=== PATIENT | female | born 1960 | race Caucasian/White ===

== ENCOUNTER 2017-07-18 19:21 | Inpatient (IN) | payer BC ==
[~2017-07-18] VITALS: Ht 160 cm; Wt 71.5 kg
[2017-07-18 19:22] VITALS: BP 177/81; PULSE 98; RESP 18; TEMP 97.9; O2SAT 98
[2017-07-18] MEDS ORDERED: ONDANSETRON HCL 4 MG/2 ML VIAL IV PUSH ONE (20:15)
[2017-07-18] MEDS ORDERED: MORPHINE SULFATE 4 MG/ML INJ IV PUSH ONE ×2 (20:15→21:15)
[2017-07-18] MEDS ORDERED: HYDR12.57 PO (20:17)
[2017-07-18] MEDS ORDERED: LISI40TA PO (20:17)
--- NOTE | 2017-07-18 21:10 | RADRPT ---
EXAM DATE/TIME: 07/18/2017 20:35 [facility] COMPARISON: No previous studies available for comparison. INDICATIONS : Pain from fall. MEDICAL HISTORY : Prior fracture. SURGICAL HISTORY : None. ENCOUNTER: Initial ACUITY: 1 day PAIN SCORE: 10/10 LOCATION: Right forearm. FINDINGS: There is a fractured distal shaft of the radius with two thirds shaft width displacement. Ulna shaft intact. Mild osteoarthritis. CONCLUSION: 1. Fracture distal shaft right radius. No dislocation. Jimmy Downing MD on July 18, 2017 at 21:08 Board Certified Radiologist. This report was verified electronically.
--- NOTE | 2017-07-18 21:21 | PD ---
HPI Chief Complaint: Fall Time Seen by Provider: 19:56 Travel History International Travel<30 days: No Contact w/Intl Traveler<30days: No Traveled to known affect area: No History of Present Illness HPI 56-year-old female that presents to the ED for evaluation of fall. Patient had trip and fall today after dinner. Patient landed on her right arm. Per patient she doesn't know what she hit but she hit the ground. She did not hit her head or lose consciousness. She has superficial cut to her right big toe. She denies any fevers chills or sweats. She denies any chest pain or shortness of breath. No abdominal pain. She takes no blood thinners. She does have a history of hypertension and takes HCTZ and lisinopril. Denies any history of heart disease. She states that she did broke her forearm when she was 10 has had no issues since. She did not have any hardware in place. She states that the pain currently say out of 10. Gets worse with movement. She does have an obvious deformity to the forearm. Denies any numbness, tilling, weakness. No other medical issues. She is from out of town. [facility] Past Medical History Diminished Hearing: No Hypertension: Yes Tetanus Vaccination: > 5 Years Past Surgical History Hysterectomy: Yes Social History Alcohol Use: No Tobacco Use: No Substance Use: No Allergies-Medications (Allergen,Severity, Reaction): Coded Allergies: No Known Allergies (Unverified , 07/18/17) Reported Meds & Prescriptions Reported Meds & Active Scripts Active Reported Hydrochlorothiazide 12.5 Mg Cap 12.5 Mg PO DAILY Lisinopril 40 Mg Tab 40 Mg PO DAILY Review of Systems Except as stated in HPI: all other systems reviewed are Neg Physical Exam Narrative GENERAL: SKIN: Warm and dry. HEAD: Atraumatic. Normocephalic. EYES: Pupils equal and round. No scleral icterus. No injection or drainage. ENT: No nasal bleeding or discharge. Mucous membranes pink and moist. Tongue is midline. No uvula deviation. NECK: Trachea midline. No JVD. CARDIOVASCULAR: Regular rate and rhythm. No murmurs, S3, S4. RESPIRATORY: No accessory muscle use. Clear to auscultation. Breath sounds equal bilaterally. GASTROINTESTINAL: Abdomen soft, non-tender, nondistended. Hepatic and splenic margins not palpable. MUSCULOSKELETAL: Extremities without clubbing, cyanosis, or edema. No obvious deformities. Full range of motion of the upper and lower extremities bilaterally. 2+ pulses bilaterally. She does have difficulty moving the right forearm and has obvious mid forearm deformity noted. Soft tissue swelling noted. Patient does have 2+ pulses in the radial and ulnar artery of the right arm. No obvious elbow or shoulder deformity noted. No cervical, thoracic, lumbar spine tenderness to palpation. Full range of motion lower extremities with no pain. Patient does have a superficial cut to the right great toe on the medial aspect. Very superficial. Less than 1 cm. Minimal bleeding noted. NEUROLOGICAL: Awake and alert. No obvious cranial nerve deficits. Motor grossly within normal limits. Five out of 5 muscle strength in the arms and legs. Normal speech. PSYCHIATRIC: Appropriate mood and affect; insight and judgment normal. Data Data Last Documented VS Vital Signs Date Time Temp Pulse Resp B/P (MAP) Pulse Ox O2 Delivery O2 Flow Rate FiO2 07/18/17 21:05 16 07/18/17 20:17 99 Room Air 07/18/17 19:22 97.9 98 177/81 (113) Orders Orders Iv Access Insert/Monitor (07/18/17 20:08) Morphine Inj (Morphine Inj) (07/18/17 20:15) Ondansetron Inj (Zofran Inj) (07/18/17 20:15) Forearm (2vws) (07/18/17 ) Electrocardiogram (07/18/17 21:07) Complete Blood Count With Diff (07/18/17 21:07) Basic Metabolic Panel (Bmp) (07/18/17 21:07) Prothrombin Time / Inr (Pt) (07/18/17 21:07) Act Partial Throm Time (Ptt) (07/18/17 21:07) Chest, Single Ap (07/18/17 21:07) Elbow, Complete (4 Vws) (07/18/17 ) Morphine Inj (Morphine Inj) (07/18/17 21:15) Splint Or Brace Apply/Monitor (07/18/17 21:07) Admit Order (Ed Use Only) (07/18/17 21:10) Consult Orthopedic (07/18/17 ) Vital Signs (Adult) Q4H (07/18/17 21:15) Diet Npo (07/19/17 Breakfast) Activity Oob With Assistance (07/18/17 21:15) [facility] Medical Decision Making Medical Screen Exam Complete: Yes Emergency Medical Condition: Yes Medical Record Reviewed: Yes Interpretation(s) X-ray of the right forearm show fracture of the midshaft of the radius Differential Diagnosis Fracture versus contusion versus bruise versus dislocation Narrative Course 56-year-old female that presents to the ED for evaluation of right forearm injury. Patient was properly examined and was found to have signs and symptoms consistent appears to be fracture of the mid right radius. Imaging was ordered. Patient was given IV pain medications. X-ray confirmed fracture. Case was discussed with Dr. Armenta who recommends admission to medicine and splint and nothing by mouth after midnight. She also wanted us to do a dedicated elbow study to make sure she doesn't have an elbow injury. This was ordered by me. Preop orders were ordered by me. Case discussed with Dr. Montgomery who agrees to admission. This was discussed with the patient and the family member who agrees to admission. All questions were asked to resume ability. Diagnosis Primary Impression: Radius shaft fracture Qualified Codes: S52.321A - Displaced transverse fracture of shaft of right radius, initial encounter for closed fracture Admitting Information Admitting Physician Requests: Admit Drik Nguyen Jul 18, 2017 21:21
[2017-07-18 21:35] VITALS: BP 162/78; TEMP 98.1
[2017-07-18 21:44] LABS: AUTOMATED NEUTROPHIL # 6.5 TH/MM3 (1.8-7.7); BASOPHIL % 0.3 % (0.0-2.0); EOSINOPHIL # 0.2 TH/MM3 (0-0.4); EOSINOPHIL % 2.2 % (0.0-4.0); HEMATOCRIT 43.9 % (35.0-46.0); HEMO FLAGS DIFF FINAL; LYMPH % 24.2 % (9.0-44.0); LYMPHOCYTE # 2.4 TH/MM3 (1.0-4.8); MEAN CELL VOLUME 83.5 FL (80.0-100.0); MEAN CORPUSCULAR HEMOGLOBIN 28.5 PG (27.0-34.0); MEAN CORPUSCULAR HGB CONC 34.1 % (32.0-36.0); MONO % 7.8 % (0.0-8.0); NEUT % 65.5 % (16.0-70.0); PLATELET COUNT 293 TH/MM3 (150-450); RED BLOOD COUNT 5.26 MIL/MM3 (4.00-5.30); RED CELL DISTRIBUTION WIDTH 13.6 % (11.6-17.2); WHITE BLOOD COUNT 9.9 TH/MM3 (4.0-11.0)
[2017-07-18] MEDS ORDERED: SENNOSIDES 8.6 MG TAB PO PRN (21:45)
[2017-07-18] MEDS ORDERED: ACETAMINOPHEN 325 MG TAB PO PRN (21:45)
[2017-07-18] MEDS ORDERED: LACTULOSE SYRUP 20 GM/30 ML CUP PO PRN (21:45)
[2017-07-18] MEDS ORDERED: BISACODYL 10 MG SUPP RECTAL PRN (21:45)
[2017-07-18] MEDS ORDERED: ACETAMINOPHEN/HYDROcodone 325 MG/5 MG TAB PO PRN (21:45)
[2017-07-18] MEDS ORDERED: SODIUM CHLORIDE 0.9% FLUSH 10 ML FLUSH IV FLUSH PRN (21:45)
[2017-07-18] MEDS ORDERED: MAGNESIUM HYDROXIDE SUSP 30 ML CUP PO PRN (21:45)
--- NOTE | 2017-07-18 21:48 | HHI.HP ---
[facility] Service [facility] Primary Care Physician Non-Staff Admission Diagnosis acute right radius mid shaft fracture Diagnoses: (1) Fall Diagnosis: Principal (2) Right radial fracture Diagnosis: Principal (3) Dehydration Diagnosis: Principal (4) Hypokalemia Diagnosis: Principal (5) HTN (hypertension) Diagnosis: Principal Travel History International Travel<30 Days: No Contact w/Intl Traveler <30 Da: No Traveled to Known Affected Are: No History of Present Illness This is a 48-year-old female with a PMH of HTN who presented to the ER with complaints of right arm pain following a mechanical fall. Landed on right arm with immediate complaints of pain. Denies LOC or head trauma. On arrival, BP 177/81, HR 98, O2 sat 98% on RA, Afebrile. CBC unremarkable. K+ 3.2. GFR 66, BUN 26. INR 1.0. CXR no acute findings. Radius/Ulna X-ray with fracture distal shaft right radius, no dislocation, s/p Splint in ER. Ortho consulted w / plans for surgical intervention. Review of Systems Except as stated in HPI: all other systems reviewed are Neg ROS: 14 point review of systems otherwise negative. Past Family Social History Past Medical History PMH: HTN Past Surgical History PAST SURGICAL HISTORY: Hysterectomy Allergies: Coded Allergies: No Known Allergies (Unverified , 07/18/17) Family History PAST FAMILY HISTORY: Reviewed. No h/o DM or CAD Social History PAST SOCIAL HISTORY: Negative for alcohol, tobacco or drugs. Physical Exam Vital Signs Vital Signs Date Time Temp Pulse Resp B/P (MAP) Pulse Ox O2 Delivery O2 Flow Rate FiO2 07/18/17 21:35 98.1 79 16 162/78 (106) 99 07/18/17 21:05 16 07/18/17 20:17 15 99 Room Air 07/18/17 19:22 97.9 98 18 177/81 (113) 98 Room Air Physical Exam PE: GENERAL: Very pleasant middle-aged white female in no acute distress. HEENT: PERRLA, EOMI. No scleral icterus or conjunctival pallor. No lid lag or facial droop. CARDIOVASCULAR: Regular rate and rhythm. No obvious murmurs to auscultation. No chest tenderness to palpation. RESPIRATORY: No obvious rhonchi or wheezing. Clear to auscultation. Breath sounds equal bilaterally. GASTROINTESTINAL: Abdomen soft, non-tender, nondistended. BS normal. MUSCULOSKELETAL: Extremities without clubbing, cyanosis, or edema. No obvious deformities. RUE s/p splint. NEUROLOGICAL: Awake, alert and oriented x4. No focal neurologic deficits. Moving both upper and lower extremities spontaneously. Laboratory Laboratory Tests Test 07/18/17 21:15 White Blood Count 9.9 Red Blood Count 5.26 Hemoglobin 15.0 Hematocrit 43.9 Mean Corpuscular Volume 83.5 Mean Corpuscular Hemoglobin 28.5 Mean Corpuscular Hemoglobin Concent 34.1 Red Cell Distribution Width 13.6 Platelet Count 293 Mean Platelet Volume 9.8 Neutrophils (%) (Auto) 65.5 Lymphocytes (%) (Auto) 24.2 Monocytes (%) (Auto) 7.8 Eosinophils (%) (Auto) 2.2 Basophils (%) (Auto) 0.3 Neutrophils # (Auto) 6.5 Lymphocytes # (Auto) 2.4 Monocytes # (Auto) 0.8 Eosinophils # (Auto) 0.2 Basophils # (Auto) 0.0 CBC Comment DIFF FINAL Differential Comment Result Diagram: 07/18/172114 Caprini VTE Risk Assessment Caprini VTE Risk Assessment: No/Low Risk (score <= 1) Caprini Risk Assessment Model Point Value = 1 Point Value = 2 Point Value = 3 Point Value = 5 Age 41-60 Minor surgery BMI > 25 kg/m2 Swollen legs Varicose veins or History of unexplained or recurrent spontaneous Oral contraceptives or hormone replacement Sepsis (< 1 month) Serious lung disease, including pneumonia (< 1 month) Abnormal pulmonary function Acute myocardial infarction Congestive heart failure (< 1 month) History of inflammatory bowel disease Medical patient at bed rest Age 61-74 Arthroscopic surgery Major open surgery (> 45 min) Laparoscopic surgery (> 45 min) Malignancy Confined to bed (> 72 hours) Immobilizing plaster cast Central venous access Age >= 75 History of VTE Family history of VTE Factor V Leiden Prothrombin [id number] Lupus anticoagulant Anticardiolipin antibodies Elevated serum homocysteine Heparin-induced thrombocytopenia Other congenital or acquired thrombophilia Stroke (< 1 month) Elective arthroplasty Hip, pelvis, or leg fracture Acute spinal cord injury (< 1 month) Prophylaxis Regimen Total Risk Factor Score Risk Level Prophylaxis Regimen 0-1 Low Early ambulation 2 Moderate Order ONE of the following: *Sequential Compression Device (SCD) *Heparin 5000 units SQ BID 3-4 Higher Order ONE of the following medications: *Heparin 5000 units SQ TID *Enoxaparin/Lovenox 40 mg SQ daily (WT < 150 kg, CrCl > 30 mL/min) *Enoxaparin/Lovenox 30 mg SQ daily (WT < 150 kg, CrCl > 10-29 mL/min) *Enoxaparin/Lovenox 30 mg SQ BID (WT < 150 kg, CrCl > 30 mL/min) AND/OR *Sequential Compression Device (SCD) 5 or more Highest Order ONE of the following medications: *Heparin 5000 units SQ TID (Preferred with Epidurals) *Enoxaparin/Lovenox 40 mg SQ daily (WT < 150 kg, CrCl > 30 mL/min) *Enoxaparin/Lovenox 30 mg SQ daily (WT < 150 kg, CrCl > 10-29 mL/min) *Enoxaparin/Lovenox 30 mg SQ BID (WT < 150 kg, CrCl > 30 mL/min) AND *Sequential Compression Device (SCD) Assessment and Plan Problem List: (1) Fall ICD Code: W19.XXXA - Unspecified fall, initial encounter (2) Right radial fracture ICD Code: S52.91XA - Unspecified fracture of right forearm, initial encounter for closed fracture (3) Hypokalemia ICD Code: E87.6 - Hypokalemia (4) Dehydration ICD Code: E86.0 - Dehydration (5) HTN (hypertension) ICD Code: I10 - Essential (primary) hypertension Assessment and Plan A/P: 1. Fall: s/p mechanical trip and fall, no LOC or head trauma. No other injuries noted. 2. Right Radius Fx: Radius/Ulna X-ray w/ fracture distal shaft right radius, no dislocation, images reviewed by me. S/p splint in ER. Ortho consulted by ER physician, plan is for surgical intervention in am. NPO, IVF, analgesics/ antiemetics as needed. 3. Hypokalemia: Mild. K+ 3.2. Will recheck and replace as needed. 4. Dehydration: BUN 26, GFR 66. IVF for hydration, repeat labs in am. 5. HTN: BP 170's on arrival, likely compounded by pain complaints. Resume home Lisinopril. Monitor BP. 6. DVT Prophylaxis: Anticoagulation postop 7. Social work for d/c planning as needed. 8. Case discussed w/ ER physician at length. Physician Certification 2 Midnight Certification Type: Admission for Inpatient Services Order for Inpatient Services The services are ordered in accordance with Medicare regulations or non- Medicare payer requirements, as applicable. In the case of services not specified as inpatient-only, they are appropriately provided as inpatient services in accordance with the 2-midnight benchmark. Estimated LOS (days): 2 days is the estimated time the patient will need to remain in the hospital, assuming treatment plan goals are met and no additional complications. Post-Hospital Plan: Not yet determined Tracie Montgomery MD Jul 18, 2017 21:48
[2017-07-18 21:56] LABS: APTT (PATIENT) 23.1 SEC (24.3-30.1); PROTHROMBIN TIME - PATIENT 10.9 SEC (9.8-11.6)
--- NOTE | 2017-07-18 21:59 | RADRPT ---
EXAM DATE/TIME: 07/18/2017 21:41 [facility] COMPARISON: No previous studies available for comparison. INDICATIONS : Pre-op right forearm fracture evaluate for any pulmonary disease. MEDICAL HISTORY : None. SURGICAL HISTORY : None. ENCOUNTER: Subsequent ACUITY: 1 day PAIN SCORE: 10/10 LOCATION: Right forearm FINDINGS: A single view of the chest demonstrates the lungs to be symmetrically aerated without evidence of mas s, infiltrate or effusion. The cardiomediastinal contours are unremarkable. Osseous structures are intact. CONCLUSION: No acute disease. Jimmy Downing MD on July 18, 2017 at 21:56 Board Certified Radiologist. This report was verified electronically.
--- NOTE | 2017-07-18 22:00 | RADRPT ---
EXAM DATE/TIME: 07/18/2017 21:44 [facility] COMPARISON: No previous studies available for comparison. INDICATIONS : Possible elbow fracture, known forearm fracture which is splinted. MEDICAL HISTORY : None. SURGICAL HISTORY : None. ENCOUNTER: Subsequent ACUITY: 1 day PAIN SCORE: 10/10 LOCATION: Right forearm FINDINGS: There is splinting of a forearm fracture. Exams were performed in oblique projection but no displaced elbow fracture is identified. CONCLUSION: 1. Negative for displaced elbow fracture. Limited exam. Jimmy Downing MD on July 18, 2017 at 21:58 Board Certified Radiologist. This report was verified electronically.
[2017-07-18 22:12] LABS: BICARBONATE 24.7 MEQ/L (21.0-32.0); POTASSIUM 3.2 MEQ/L (3.5-5.1)
[2017-07-18 22:15] VITALS: BP 160/74; PULSE 84; RESP 16; TEMP 97.2; O2SAT 97
[2017-07-18] MEDS ORDERED: SODIUM CHLORID 0.9% 500 ML IV PRN (22:30)
[2017-07-18] MEDS ORDERED: METOPROLOL TARTRATE 25 MG TAB PO PRN (22:30)
[2017-07-18] MEDS ORDERED: POVIDONE IODINE 5% (ANTISEPSIS KIT) 4 APPLICATIONS EACH NARE PRN (22:30)
[2017-07-18] MEDS ORDERED: CHLORHEXIDINE GLUCONATE 2 % 1 PACK (2 CLOTHS) TOPICAL PRN (22:30)
[2017-07-18] MEDS ORDERED: LACTATED RINGER'S 1000 ML IV PRN (22:30)
[2017-07-18] MEDS ORDERED: INSULIN HUMAN REGULAR 1,000 UNITS/10 ML VIAL SQ PRN (22:30)
[2017-07-18] MEDS: SODIUM CHLOR 0.9% 1000 ML INJ 1,000 ML IV SCH (22:57)
[2017-07-19] MEDS: MORPHINE SULFATE 4 MG/ML INJ IV PUSH PRN ×3 (01:06→07:52)
[2017-07-19 03:55] VITALS: BP 156/74; PULSE 95; RESP 16; TEMP 97.6; O2SAT 96
[2017-07-19] MEDS: ONDANSETRON HCL 4 MG/2 ML VIAL IVP PRN ×2 (04:29→18:37)
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
[2017-07-19] MEDS ORDERED: HYDR-3366 PO (06:54)
[2017-07-19 07:06] LABS: AUTOMATED NEUTROPHIL # 8.2 TH/MM3 (1.8-7.7); BASOPHIL % 0.2 % (0.0-2.0); EOSINOPHIL % 0.1 % (0.0-4.0); HEMO FLAGS DIFF FINAL; LYMPH % 14.8 % (9.0-44.0); LYMPHOCYTE # 1.6 TH/MM3 (1.0-4.8); MEAN CELL VOLUME 83.9 FL (80.0-100.0); MEAN CORPUSCULAR HGB CONC 33.4 % (32.0-36.0); MONO % 7.8 % (0.0-8.0); NEUT % 77.1 % (16.0-70.0); PLATELET COUNT 251 TH/MM3 (150-450); RED BLOOD COUNT 4.65 MIL/MM3 (4.00-5.30); RED CELL DISTRIBUTION WIDTH 13.5 % (11.6-17.2); WHITE BLOOD COUNT 10.6 TH/MM3 (4.0-11.0)
[2017-07-19 07:30] LABS: ALT (GPT) 21 U/L (10-53); ANION GAP 8 MEQ/L (5-15); AST (GOT) 10 U/L (15-37); BICARBONATE 24.3 MEQ/L (21.0-32.0); BLOOD UREA NITROGEN 24 MG/DL (7-18); CHLORIDE 111 MEQ/L (98-107); GLOMERULAR FILTRATION RATE 89 ML/MIN (>89); POTASSIUM 3.4 MEQ/L (3.5-5.1); SODIUM (NA) 143 MEQ/L (136-145)
[2017-07-19 07:32] LABS: ALKALINE PHOSPHATASE 65 U/L (45-117); TOTAL BILIRUBIN ADULT 0.3 MG/DL (0.2-1.0)
[2017-07-19 08:01] VITALS: BP 143/76; PULSE 85; RESP 18; TEMP 98.5; O2SAT 96
[2017-07-19] MEDS ORDERED: ACETAMINOPHEN 1000 MG/100 ML 100 ML IV ONE (08:47)
[2017-07-19] MEDS ORDERED: ceFAZolin 2 GM PREMIX 50 ML ONE (08:52)
[2017-07-19] MEDS ORDERED: BUPIVACAINE/EPINEPHRINE 0.25% 50 ML VIAL ONE (08:52)
[2017-07-19] MEDS ORDERED: VANCOMYCIN HCL 1000 MG VIAL ONE (08:52)
[2017-07-19] MEDS ORDERED: SODIUM CHLOR 0.9% 250 ML INJ 250 ML ONE (08:53)
[2017-07-19] MEDS ORDERED: GENTAMICIN SULFATE 80 MG/2 ML VIAL ONE (08:53)
[2017-07-19] MEDS: DOCUSATE SODIUM 50 MG/SENNA 8.6 MG TAB PO SCH ×2 (09:00→20:30)
[2017-07-19] MEDS: LISINOPRIL 20 MG TAB PO SCH ×2 (09:00→20:36)
[2017-07-19] MEDS: SODIUM CHLORIDE 0.9% FLUSH 10 ML FLUSH IV FLUSH SCH ×2 (09:00→20:30)
--- NOTE | 2017-07-19 09:18 | MB ---
cc: JOSE MARIA VILLANUEVA DATE OF ADMISSION 07/18/2017 DATE OF CONSULTATION 07/19/2017 REASON FOR CONSULTATION Right radial shaft fracture. CONSULTING PHYSICIAN Dr. Montgomery. HISTORY Ms. Maria L Gregory is a 56-year-old female who has a history of hypertension. She lives in [place] but is visiting [facility] for vacation. She tripped and fell. She landed on her right arm. She had immediate right arm pain. She presented to the emergency room where x-rays revealed a right radial shaft fracture. She is currently awake and alert on the orthopedic floor. Her is at bedside. Her only complaint is her right arm. She denies any dizziness, syncope or loss of consciousness. PAST MEDICAL HISTORY SURGERIES Hysterectomy. ALLERGIES None. MEDICATIONS 1. Hydrochlorothiazide. 2. Lisinopril. ILLNESSES Hypertension. SOCIAL HISTORY The patient lives in [place] with her . She denies alcohol, tobacco or drug use. FAMILY HISTORY Noncontributory. REVIEW OF SYSTEMS The patient denies headache, visual changes, neck pain, chest pain, shortness of breath, abdominal pain, fevers or chills, nausea or vomiting or recent weight loss, numbness or tingling of extremities. She complains of right arm pain. The pain is worse with movement. PHYSICAL EXAMINATION GENERAL: The patient is a pleasant 56-year-old female in no acute distress. She is awake and alert. She alert and oriented x 3. She appears well-developed, well-nourished. VITAL SIGNS: Temperature 98.5, pulse 85, respirations 18, blood pressure 143/76. O2 sat is 96% on room air. HEAD: The patient is normocephalic. Pupils are equal. NECK: Soft and nontender. Trachea is midline. ABDOMEN: Soft, nontender, nondistended. EXTREMITIES: Examination of the right arm reveals no tenderness around her shoulder. She is in a long-arm splint. She has good capillary refill in her fingers. She has minimal pain with passive range of motion of her fingers. Examination of the left arm reveals no pain with shoulder, elbow or wrist motion. Skin is intact. Radial pulses palpable. Sensation is intact in all fingers. Examination of the bilateral lower extremities reveals no pain with hip, knee or ankle motion. Skin is intact. Dorsalis pedis pulses are palpable. Sensation intact in both feet. X-RAYS X-rays of the right forearm are reviewed. X-rays reveal a displaced right radial shaft fracture. X-rays of the right elbow were reviewed. The x-ray reveal no evidence of acute fracture. The elbow joint is concentrically reduced. IMPRESSION Right radial shaft fracture. PLAN The treatment options were discussed with the patient. At this point I would recommend open reduction, internal fixation of the right radial shaft. The risks of surgery include bleeding, infection, injury to arteries, nerves and blood vessels, nonunion, malunion, painful hardware, stiffness of elbow, wrist and forearm, injuries to neurovascular structures, weakness na numbness of the hand, as well as medical complications associated with anesthesia. All questions were answered. I will plan on surgery today. A mid-level provider in my office, nurse practitioner or PA, may see this patient on a follow-up basis and continue to implement the objective of this plan including: Starting or adjusting medications, injections of muscle, tendon, bursa or joints, cast application, orthotic or brace application, physical therapy, further radiographic studies including x-ray, MRI, CT, ultrasounds or bone scan, vascular studies, neurologic studies, or other specialist consultations, and proceeding with surgical management as appropriate. MD ARIEL Alvarez/SRIDHAR /8:56 AM /9:02 AM
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
--- NOTE | 2017-07-19 09:57 | PD.OP ---
cc: Javid Allen MD Operative Report Date of Surgery: Jul 19, 2017 Preoperative Diagnosis: Displaced right radial shaft fracture Postoperative Diagnosis: Procedure: Open reduction internal fixation right radial shaft Surgeon: Javid Allen Cold Rolling Supervisor(s): KRISTEN Escobedo PA-C The surgical procedure was assisted by my physician assistant manager. My P.A. presence was necessary throughout this case for the manipulation and positioning of the surgical extremity. My P.A. was assisting me throughout the duration of this procedure. The skill set of a physician assistant manager was medically necessary to complete this procedure. During the surgical case the surgical appliance fitter was working at the back table and the physician assistant manager was directly assisting me. Operation and Findings: Patient was seen and examined preoperatively. Patient was found to have displaced right radial shaft fracture. Informed consent was obtained and operative site was marked. Patient was brought to operating room and given IV sedation and general anesthesia. Timeout procedure was performed. Operative extremity was prepped and draped with alcohol followed by Hibiclens and draped in usual sterile fashion. IV antibiotics were administered prior to incision. Procedure began with a 5 inch incision over the volar aspect of the forearm. A standard volar approach was utilized. The interval between the radial artery and superficial radial nerve was identified. Neurovascular structures were protected. Soft tissue was elevated off the bone. Fracture site was visualized. Fracture fragments were carefully reduced and keyed in anatomic alignment. K wires were used to hold provisional fixation. A Synthes plate was contoured to fit the radius. Plate was provisionally held with K wires. 3.5 cortical screws were used to compress plate to bone. Multiple screws were placed in each side of fracture. K wires were removed. Final fluoroscopy revealed excellent of fracture with well-placed hardware. Incision was now closed with 3-0 Vicryl and an. At this point both the elbow and the wrist joint to visualize under fluoroscopy. The distal radioulnar joint and proximal radial ulnar joint were stable. Sterile dressings were applied with Xeroform 4 x 4 soft roll and Abdi wrap. Patient was awakened and transferred to recovery room in stable condition. Forearm compartments were soft and compressible. Javid Allen MD Jul 19, 2017 09:57
[2017-07-19] MEDS ORDERED: MORPHINE SULFATE 4 MG/ML INJ IV PUSH PRN (10:00)
[2017-07-19] MEDS ORDERED: cloNIDine HCL 0.1 MG TAB PO PRN (10:00)
[2017-07-19] MEDS ORDERED: DO NOT ADM ANY ANTICOAGULANT DRUGS PRN (10:17)
[2017-07-19] MEDS ORDERED: *morphine SULFATE 8 MG/ML PERIprocedure ONLY ONE ×2 (10:27→10:37)
--- NOTE | 2017-07-19 10:39 | EKG ---
Date Performed: 07/18/2017 Time Performed: 21:23:23 PTAGE: 56 years EKG: Sinus rhythm MINIMAL VOLTAGE CRITERIA FOR LVH, CONSIDER NORMAL VARIANT BORDERLINE ECG NO PREVIOUS TRACING DOCTOR: Mika Kaiser Interpretating Date/Time 07/19/2017 10:37:22
--- NOTE | 2017-07-19 10:42 | HHI.PR ---
Subjective Remarks Follow-up orthopedic injury. Seen in PACU. Patient complains of surgical pain. Denies numbness and weakness. Discussed with RN Objective Vitals Vital Signs Date Time Temp Pulse Resp B/P (MAP) Pulse Ox O2 Delivery O2 Flow Rate FiO2 07/19/17 08:01 98.5 85 18 143/76 (98) 96 07/19/17 03:55 97.6 95 16 156/74 (101) 96 07/18/17 22:15 97.2 84 16 160/74 (102) 97 07/18/17 21:35 98.1 79 16 162/78 (106) 99 07/18/17 21:05 16 07/18/17 20:17 15 99 Room Air 07/18/17 19:22 97.9 98 18 177/81 (113) 98 Room Air I/O 07/18/17 07/18/17 07/18/17 07/19/17 07/19/17 07/19/17 07:00 15:00 23:00 07:00 15:00 23:00 Intake Total 120 ml 0 ml 600 ml Output Total 20 ml Balance 120 ml 0 ml 580 ml Intake Oral 120 ml 0 ml Other 600 ml Output Estimated Blood Loss 20 ml # Voids 1 1 # Bowel Movements 0 0 Result Diagram: 07/19/1751907/19/17519 Imaging Last Impressions Chest X-Ray 07/18/172106 Signed Impressions: Service Date/Time: Tuesday, July 18, 2017 21:41 - CONCLUSION: No acute disease. Jimmy Downing MD Radius/Ulna X-Ray 07/18/17 0000 Signed Impressions: Service Date/Time: Tuesday, July 18, 2017 20:35 - CONCLUSION: 1. Fracture distal shaft right radius. No dislocation. Jimmy Downing MD Elbow X-Ray 07/18/17 0000 Signed Impressions: Service Date/Time: Tuesday, July 18, 2017 21:44 - CONCLUSION: 1. Negative for displaced elbow fracture. Limited exam. Jimmy Downing MD Objective Remarks GENERAL: Very pleasant middle-aged white female in no acute distress. HEENT: PERRLA, EOMI. No scleral icterus or conjunctival pallor. No lid lag or facial droop. CARDIOVASCULAR: Regular rate and rhythm. No obvious murmurs to auscultation. No chest tenderness to palpation. RESPIRATORY: No obvious rhonchi or wheezing. Clear to auscultation. Breath sounds equal bilaterally. GASTROINTESTINAL: Abdomen soft, non-tender, nondistended. BS normal. MUSCULOSKELETAL: Extremities without clubbing, cyanosis, or edema. No obvious deformities. RUE in a cast NEUROLOGICAL: Awake, alert and oriented x4. No focal neurologic deficits. Moving both upper and lower extremities spontaneously. Procedures ORIF radius A/P Problem List: (1) Fall ICD Code: W19.XXXA - Unspecified fall, initial encounter (2) Right radial fracture ICD Code: S52.91XA - Unspecified fracture of right forearm, initial encounter for closed fracture (3) Hypokalemia ICD Code: E87.6 - Hypokalemia (4) Dehydration ICD Code: E86.0 - Dehydration (5) HTN (hypertension) ICD Code: I10 - Essential (primary) hypertension Assessment and Plan 1. Fall: s/p mechanical trip and fall, no LOC or head trauma. No other injuries noted. PT eval. Fall precautions 2. Right Radius Fx: Radius/Ulna X-ray w/ fracture distal shaft right radius, no dislocation, images reviewed by me. S/p splint in ER. Ortho consulted by ER physician, status post ORIF. Stable continue wound care, OT and pain management with Lortab. Counseled regarding narcotics. 3. Hypokalemia: Mild. K+ 3.2. Will recheck and replace as needed. Check magnesium 4. Dehydration: BUN 26, GFR 66. IVF for hydration, repeat labs in am shows improvement. 5. HTN: BP 170's on arrival, likely compounded by pain complaints. Resume home Lisinopril. Monitor BP. Improving 6. DVT Prophylaxis: Anticoagulation postop. Patient will be ambulatory Discharge Planning Discharge patient to home Condition on discharge: Improved Regular Diet as tolerated Ad Shanice activity NWB RUE Rx written: [place] Follow-up with primary care physician and ortho 1 week Aneudy James MD Jul 19, 2017 10:42
[2017-07-19] MEDS ORDERED: POTASSIUM CHLOR 20 MEQ PREMIX 100 ML IV ONE (11:00)
[2017-07-19] MEDS ORDERED: ENALAPRILAT 1.25 MG/ML VIAL IV PUSH PRN (11:00)
--- NOTE | 2017-07-19 11:17 | RADRPT ---
EXAM DATE/TIME: 07/19/2017 09:40 [facility] COMPARISON: FOREARM RIGHT (2VWS), July 18, 2017, 20:35. INDICATIONS : ORIF right radius fracture. MEDICAL HISTORY : Unobtainable. SURGICAL HISTORY : Unobtainable. ENCOUNTER: Subsequent ACUITY: 1 day PAIN SCORE: Non-responsive. LOCATION: Right forearm. FINDINGS: Three fluoroscopic images of the right forearm. Interval plate and screw fixation of distal right rad ial fracture. There is anatomic alignment and the hardware appears well-positioned. No additional new bony fractures are noted. CONCLUSION: 1. Right radial ORIF in anatomic alignment, as above. Jak Antonio MD on July 19, 2017 at 11:14 Board Certified Radiologist. This report was verified electronically.
[2017-07-19] MEDS: SODIUM CHLOR 0.9% 1000 ML INJ 1,000 ML IV SCH ×2 (11:25→17:45)
[2017-07-19] MEDS ORDERED: *ONDANSETRON 4 MG VIAL PERIprocedural Use ONLY ONE (12:13)
[2017-07-19] MEDS ORDERED: ONDANSETRON HCL 4 MG/2 ML VIAL IV PUSH ONE (13:15)
[2017-07-19] MEDS ORDERED: ePHEDrine/NS 25 MG/5 ML SYR IV ONE (13:15)
[2017-07-19] MEDS ORDERED: PROPOFOL 200 MG/20 ML AMP IV ONE (13:15)
[2017-07-19] MEDS ORDERED: DEXAMETHASONE SOD PHOS 4 MG/ML VIAL IV ONE (13:15)
[2017-07-19] MEDS ORDERED: LIDOCAINE HCL 1% PF 5 ML AMPULE OTHER ONE (13:15)
[2017-07-19] MEDS ORDERED: MIDAZOLAM HCL 2 MG/2 ML VIAL IV ONE (13:15)
--- NOTE | 2017-07-19 14:37 | HHI.FF ---
Face to Face Verification Diagnosis: (1) Fall (2) Right radial fracture Physical Therapy Order: Evaluate and Treat, Improve ambulation, Strength and gait training Occupational Therapy Order: Evaluate and Treat, Improve ADL, Gross motor coordination, Fine motor coordination Home Health Nursing Order: Medical education Wound care and dressing changes Nursing assessment with vital signs I have seen patient Maria L Gregory on 07/19/17. My clinical findings support the need for the requested home health care services because: Ltd mobility - disease progression Deconditioned w/ increased weakness I certify that my clinical findings support that this patient is homebound because: Unsafe to leave home unassisted Aneudy James MD Jul 19, 2017 14:37
[2017-07-19 14:56] VITALS: O2SAT 95
[2017-07-19] MEDS: ACETAMINOPHEN/HYDROcodone 325 MG/7.5 MG TAB PO PRN ×3 (15:27→23:23)
[2017-07-19 16:00] VITALS: BP 148/75; PULSE 83; RESP 18; TEMP 98.7; O2SAT 97
[2017-07-19 18:02] VITALS: O2SAT 97
[2017-07-19 20:00] VITALS: BP 137/71; PULSE 86; RESP 17; TEMP 97.8; O2SAT 97
[2017-07-20] VITALS (7 sets, daily range): BP systolic 103–163; BP diastolic 59–90; PULSE 68–90; RESP 15–18; TEMP 97.5–98.5; O2SAT 96–99
[2017-07-20] MEDS: NS + KCL 20 MEQ INJ 1,000 ML IV SCH ×2 (00:58→09:10)
[2017-07-20] MEDS: ACETAMINOPHEN/HYDROcodone 325 MG/7.5 MG TAB PO PRN ×4 (03:40→15:31)
--- NOTE | 2017-07-20 07:10 | PD.ORT.PN ---
Subjective Subjective Remarks POD 1 s/p ORIF right radial shaft doing well. pain controlled. no complaints. Objective Vitals Vital Signs Date Time Temp Pulse Resp B/P (MAP) Pulse Ox O2 Delivery O2 Flow Rate FiO2 07/20/17 00:49 98.5 68 17 129/63 (85) 96 07/19/17 20:00 97.8 86 17 137/71 (93) 97 07/19/17 18:02 97 21 07/19/17 16:00 98.7 83 18 148/75 (99) 97 07/19/17 14:56 95 07/19/17 12:00 98 16 139/60 (86) 96 Room Air 07/19/17 11:45 86 16 144/65 (91) 96 Room Air 07/19/17 11:30 80 16 152/66 (94) 96 Room Air 07/19/17 11:15 82 16 137/62 (87) 97 Room Air 07/19/17 11:00 80 16 128/61 (83) 96 Room Air 07/19/17 10:45 82 16 126/58 (80) 96 Room Air 07/19/17 10:30 84 16 125/61 (82) 96 Room Air 07/19/17 10:17 98.0 96 16 130/64 (86) 99 07/19/17 08:01 98.5 85 18 143/76 (98) 96 I/O 07/19/17 07/19/17 07/19/17 07/20/17 07/20/17 07/20/17 07:00 15:00 23:00 07:00 15:00 23:00 Intake Total 0 ml 600 ml 1013 ml Output Total 520 ml Balance 0 ml 80 ml 1013 ml Intake Oral 0 ml 480 ml IV Total 533 ml Other 600 ml Output Urine Total 500 ml Estimated Blood Loss 20 ml # Voids 1 5 1 # Bowel Movements 0 0 Result Diagram: 07/19/1751907/19/17519 Imaging Last 24 hours Impressions Chest X-Ray 07/18/172106 Signed Impressions: Service Date/Time: Tuesday, July 18, 2017 21:41 - CONCLUSION: No acute disease. Jimmy Downing MD Objective Remarks Right upper extremity: dressings clean and dry. intact. NVI Assessment & Plan Assessment and Plan 1) Right radial shaft fracture s/p ORIF - POD 1 -NWB -dressing change prior to DC -ortho cleared for DC home -f/u with Ortho home in [place] in 2 weeks -ok to maintain dressing til then if necessary. otherwise, dressing changes with xroform/primapore Nate Thurston Jul 20, 2017 07:10
[2017-07-20] MEDS: DOCUSATE SODIUM 50 MG/SENNA 8.6 MG TAB PO SCH (08:13)
[2017-07-20] MEDS: LISINOPRIL 20 MG TAB PO SCH (08:14)
[2017-07-20] MEDS: SODIUM CHLORIDE 0.9% FLUSH 10 ML FLUSH IV FLUSH SCH (08:14)
[2017-07-20] MEDS ORDERED: HYDROCHLOROTHIAZIDE 12.5 MG CAP PO SCH (09:00)
--- NOTE | 2017-07-20 13:45 | HHI.PR ---
Subjective Remarks Follow-up orthopedic injury. Discharge held yesterday because of extreme nausea. Today she is feeling better tolerating food. Seen with . Discussed with RN Objective Vitals Vital Signs Date Time Temp Pulse Resp B/P (MAP) Pulse Ox O2 Delivery O2 Flow Rate FiO2 07/20/17 12:00 97.5 73 18 156/90 (112) 96 07/20/17 09:14 18 07/20/17 08:00 98.0 90 18 163/83 (109) 97 07/20/17 04:35 97.7 68 16 103/59 (74) 97 07/20/17 00:49 98.5 68 17 129/63 (85) 96 07/19/17 20:00 97.8 86 17 137/71 (93) 97 07/19/17 18:02 97 21 07/19/17 16:00 98.7 83 18 148/75 (99) 97 07/19/17 14:56 95 I/O 07/19/17 07/19/17 07/19/17 07/20/17 07/20/17 07/20/17 07:00 15:00 23:00 07:00 15:00 23:00 Intake Total 0 ml 600 ml 1013 ml 240 ml Output Total 520 ml Balance 0 ml 80 ml 1013 ml 240 ml Intake Oral 0 ml 480 ml 240 ml IV Total 533 ml Other 600 ml Output Urine Total 500 ml Estimated Blood Loss 20 ml # Voids 1 5 1 1 # Bowel Movements 0 0 0 Result Diagram: 07/19/17 0520 07/19/17 0520 Imaging Last Impressions Radius/Ulna X-Ray 07/19/17 0000 Signed Impressions: Service Date/Time: Wednesday, July 19, 2017 09:40 - CONCLUSION: 1. Right radial ORIF in anatomic alignment, as above. Jak Antonio MD Chest X-Ray 07/18/172106 Signed Impressions: Service Date/Time: Tuesday, July 18, 2017 21:41 - CONCLUSION: No acute disease. Jimmy Downing MD Elbow X-Ray 07/18/17 0000 Signed Impressions: Service Date/Time: Tuesday, July 18, 2017 21:44 - CONCLUSION: 1. Negative for displaced elbow fracture. Limited exam. Jimmy Downing MD Objective Remarks GENERAL: Very pleasant middle-aged white female in no acute distress. HEENT: PERRLA, EOMI. No scleral icterus or conjunctival pallor. No lid lag or facial droop. CARDIOVASCULAR: Regular rate and rhythm. No obvious murmurs to auscultation. No chest tenderness to palpation. RESPIRATORY: No obvious rhonchi or wheezing. Clear to auscultation. Breath sounds equal bilaterally. GASTROINTESTINAL: Abdomen soft, non-tender, nondistended. BS normal. MUSCULOSKELETAL: Extremities without clubbing, cyanosis, or edema. No obvious deformities. RUE in a cast NEUROLOGICAL: Awake, alert and oriented x4. No focal neurologic deficits. Moving both upper and lower extremities spontaneously. Procedures ORIF radius A/P Problem List: (1) Fall ICD Code: W19.XXXA - Unspecified fall, initial encounter (2) Right radial fracture ICD Code: S52.91XA - Unspecified fracture of right forearm, initial encounter for closed fracture (3) Hypokalemia ICD Code: E87.6 - Hypokalemia (4) Dehydration ICD Code: E86.0 - Dehydration (5) HTN (hypertension) ICD Code: I10 - Essential (primary) hypertension Assessment and Plan 1. Fall: s/p mechanical trip and fall, no LOC or head trauma. No other injuries noted. PT eval. Fall precautions 2. Right Radius Fx: Radius/Ulna X-ray w/ fracture distal shaft right radius, no dislocation, images reviewed by me. S/p splint in ER. Ortho consulted by ER physician, status post ORIF. Stable continue wound care, OT and pain management with Lortab. Counseled regarding narcotics. 3. Hypokalemia: Mild. K+ 3.2. Will recheck and replace as needed. 4. Dehydration: BUN 26, GFR 66. IVF for hydration, repeat labs shows improvement. 5. HTN: BP 170's on arrival, likely compounded by pain complaints. Resume home Lisinopril. Monitor BP. Improving 6. DVT Prophylaxis: Anticoagulation postop. Patient will be ambulatory Discharge Planning Discharge patient to home Condition on discharge: Improved Regular Diet as tolerated Ad Shanice activity NWB RUE Rx written: [place] and potassium Follow-up with primary care physician and ortho 1 week Aneudy James MD Jul 20, 2017 13:44
[2017-07-20 15:26] LABS: MAGNESIUM 2.1 MG/DL (1.5-2.5); POTASSIUM 3.3 MEQ/L (3.5-5.1)
[2017-07-20] MEDS ORDERED: POTA10CA PO (15:43)
[2017-07-20] MEDS ORDERED: POTASSIUM CHLORIDE 20 MEQ CONTROLLED RELEASE TAB PO ONE (15:45)
== END 2017-07-20 18:27 | disposition home or self-care (01) | DRG 512 ==
LOC: NEPC 19:21 → NEDA 21:12 → N06B 22:16
PROVIDERS: ADMIT Internal Medicine; ATTEND Internal Medicine
PROC: 0PSH04Z Reposition Right Radius with Internal Fixation Device, Open Approach (ICD-10-PCS; principal; 2017-07-19 09:05)
DX: S52.301A Unspecified fracture of shaft of right radius, initial encounter for closed fracture (principal); I10 Essential (primary) hypertension; E86.0 Dehydration; E87.6 Hypokalemia; W01.0XXA Fall on same level from slipping, tripping and stumbling without subsequent striking against object, initial encounter; Y92.039 Unspecified place in apartment as the place of occurrence of the external cause
CPT/HCPCS: 71010; 73080; 73090; 76000; 80048; 80053; 83735; 85025; 85610; 85730; 93005; 96374; 96375; C1713; J0131; J0690; J1100; J1580; J2250; J2270; J2405; J3010; J3370; J3480; J7030; J7050; J7120